=== PATIENT | male | born 1970 | race Caucasian/White ===

== ENCOUNTER 2024-05-03 20:48 | Inpatient (IN) | payer OTHER ==
[~2024-05-03] VITALS: Ht 167.6 cm; Wt 87.5 kg
[2024-05-03] MEDS ORDERED: SODIUM CHLORIDE 0.9% 100 ML ONE (20:58)
[2024-05-03] MEDS ORDERED: IOHEXOL 350 MG/ML 100 ML VIAL ONE (20:58)
[2024-05-03 21:19] LABS: BASOPHILS % (AUTO) 0.4 % (0.0-2.0); EOSINOPHILS % (AUTO) 1.9 % (1.0-6.0); HEMATOCRIT 45.7 % (41-53); HEMOGLOBIN 15.2 g/dL (13.5-17.5); LYMPHOCYTES # (AUTO) 1.5 K/uL (1.0-4.8); LYMPHOCYTES % (AUTO) 17.1 % (22.0-44.0); MEAN CORPUSCULAR HEMOGLOBIN 31.6 pg (26.0-34.0); MEAN CORPUSCULAR HGB CONC 33.3 G/dL (31.0-37.0); MEAN CORPUSCULAR VOLUME 95 fL (80-100); MONOCYTES # (AUTO) 0.5 K/uL (0.1-1.0); MONOCYTES % (AUTO) 6.2 % (2.0-9.0); NEUTROPHILS # (AUTO) 6.4 K/uL (1.8-7.7); NEUTROPHILS % (AUTO) 74.4 % (40.0-70.0); PLATELET COUNT (AUTO) 277 K/uL (150-450); RED BLOOD CELL COUNT(AUTO) 4.82 MIL/uL (4.50-5.90); RED CELL DISTRIBUTION WIDTH 13.8 % (11.5-14.5); WHITE BLOOD COUNT (AUTO) 8.7 K/uL (4.5-11.0)
[2024-05-03 21:22] LABS: ANION GAP 12 mmol/L (8-16); CALCIUM, TOTAL 9.2 mg/dL (8.8-10.5); CARBON DIOXIDE 24 mmol/L (22-29); CHLORIDE 102 mmol/L (98-107); CREATININE 0.93 mg/dL (0.60-1.30); GLOMERULAR FILTR. RATE CALC > 60 mL/min (>60); GLUCOSE,RANDOM 116 mg/dL (70-110); POTASSIUM 3.7 mmol/L (3.5-5.1); SODIUM SERUM 138 mmol/L (136-145); UREA NITROGEN, BLOOD 12 mg/dL (7-18)
[2024-05-03 21:26] LABS: PROTHROMBIN TIME 10.6 SEC (9.4-11.6)
[2024-05-03 21:29] LABS: ALANINE AMINOTRANSFERASE 15 U/L (12-78); ALBUMIN 3.9 g/dL (3.4-5.0); ALKALINE PHOSPHATASE 111 U/L (46-116); ASPARTATE AMINOTRANSFERASE 7 U/L (15-37); BILIRUBIN,TOTAL 0.4 mg/dL (0.1-1.0); TOTAL PROTEIN, SERUM 8.1 g/dL (6.4-8.2)
[2024-05-03 21:30] LABS: TROPONIN I-HIGH SENSITIVITY 10 ng/L (<76)
[2024-05-03] MEDS: LIDOCAINE 2% VISCOUS 15 ML SOLUTION UDCUP TP ONE (21:40)
[2024-05-03] MEDS: NiCARDipine HCL 25 MG in SODIUM CHLORIDE 0.9% 240 ML IV PRN (21:52)
[2024-05-03 21:54] LABS: APPEARANCE,URINE CLEAR (CLEAR); BILIRUBIN,URINE NEGATIVE (NEGATIVE); COLOR,URINE LIGHT YELLOW (YELLOW); GLUCOSE, URINE (UA) NEGATIVE (NEGATIVE); KETONES,URINE NEGATIVE (NEGATIVE); LEUKOCYTE ESTERASE ,URINE NEGATIVE (NEGATIVE); NITRATE,URINE NEGATIVE (NEGATIVE); OCCULT BLOOD,URINE NEGATIVE (NEGATIVE); PH,URINE 5.5 (5.0-8.0); PH,URINE DRUG SCREEN 5.5 (5.0-8.0); PROTEIN,URINE TRACE mg/dL (NEGATIVE); SPECIFIC GRAVITIY, URINE 1.041 (1.003-1.030); UROBILINOGEN,URINE <=1.0 mg/dL (<=1.0)
[2024-05-03 21:59] LABS: COVID AG,FIA SOURCE NASAL SWAB
[2024-05-03 22:00] LABS: ALCOHOL, URINE DRUG SCREEN NEGATIVE (NEGATIVE); AMPHET/METH SCREEN,URINE NEGATIVE (NEGATIVE); BARBITURATE SCREEN, URINE NEGATIVE (NEGATIVE); BENZODIAZEPINES SCREEN,URINE NEGATIVE (NEGATIVE); CANNABINOID SCREEN,URINE NEGATIVE (NEGATIVE); COCAINE SCREEN,URINE NEGATIVE (NEGATIVE); METHADONE SCREEN, URINE NEGATIVE (NEGATIVE); OPIATE SCREEN,URINE NEGATIVE (NEGATIVE); PHENCYCLIDINE SCREEN,URINE NEGATIVE (NEGATIVE)
[2024-05-03 22:13] LABS: BACTERIA,URINE None Seen /HPF (None Seen); RBC,URINE None Seen /HPF (0-2); WBC,URINE None Seen /HPF (0-5)
[2024-05-03 22:16] LABS: SARS-COV2 (COVID) ANTIGEN,FIA Negative (Negative)
[2024-05-03] MEDS ORDERED: ZOLPIDEM TARTRATE 5 MG TABLET PO PRN (23:15)
[2024-05-03] MEDS ORDERED: ALBUTEROL SULFATE 2.5 MG/0.5 ML NEB SOLUTION NEB PRN (23:15)
[2024-05-03] MEDS ORDERED: IPRATROPIUM BROMIDE 0.5 MG/2.5 ML NEB SOLUTION NEB PRN (23:15)
[2024-05-03] MEDS ORDERED: ONDANSETRON HCL 4 MG/2 ML VIAL IVP PRN (23:15)
[2024-05-03] MEDS ORDERED: BISACODYL 10 MG RECTAL RECTAL SUPPOSITORY PR PRN (23:15)
[2024-05-04 01:45] VITALS: BP 157/99; PULSE 120; RESP 10; TEMP 99.1
[2024-05-04 04:00] VITALS: BP 136/75; PULSE 93; RESP 14; TEMP 99.2
[2024-05-04 06:26] LABS: TROPONIN I-HIGH SENSITIVITY 24 ng/L (<76)
[2024-05-04 06:38] LABS: BASOPHILS % (AUTO) 0.4 % (0.0-2.0); EOSINOPHILS % (AUTO) 0.4 % (1.0-6.0); HEMATOCRIT 45.6 % (41-53); HEMOGLOBIN 15.1 g/dL (13.5-17.5); LYMPHOCYTES # (AUTO) 1.1 K/uL (1.0-4.8); LYMPHOCYTES % (AUTO) 9.2 % (22.0-44.0); MEAN CORPUSCULAR HEMOGLOBIN 31.6 pg (26.0-34.0); MEAN CORPUSCULAR HGB CONC 33.2 G/dL (31.0-37.0); MEAN CORPUSCULAR VOLUME 95 fL (80-100); MONOCYTES # (AUTO) 0.7 K/uL (0.1-1.0); NEUTROPHILS # (AUTO) 9.9 K/uL (1.8-7.7); PLATELET COUNT (AUTO) 283 K/uL (150-450); RED BLOOD CELL COUNT(AUTO) 4.78 MIL/uL (4.50-5.90); RED CELL DISTRIBUTION WIDTH 13.7 % (11.5-14.5); WHITE BLOOD COUNT (AUTO) 11.8 K/uL (4.5-11.0)
[2024-05-04 08:00] VITALS: BP 136/80; PULSE 99; RESP 10; TEMP 99.3
[2024-05-04 08:39] LABS: ALANINE AMINOTRANSFERASE 387 U/L (12-78); ALBUMIN 3.8 g/dL (3.4-5.0); ALKALINE PHOSPHATASE 103 U/L (46-116); ANION GAP 14 mmol/L (8-16); BILIRUBIN,TOTAL 0.5 mg/dL (0.1-1.0); CARBON DIOXIDE 23 mmol/L (22-29); CHLORIDE 104 mmol/L (98-107); CREATININE 0.94 mg/dL (0.60-1.30); GLOMERULAR FILTR. RATE CALC > 60 mL/min (>60); GLUCOSE,RANDOM 131 mg/dL (70-110); POTASSIUM 3.8 mmol/L (3.5-5.1); SODIUM SERUM 141 mmol/L (136-145); TOTAL PROTEIN, SERUM 7.6 g/dL (6.4-8.2); UREA NITROGEN, BLOOD 9 mg/dL (7-18)
[2024-05-04] MEDS: DOCUSATE SODIUM 100 MG CAPSULE PO SCH (09:00)
[2024-05-04 09:01] LABS: ASPARTATE AMINOTRANSFERASE 17 U/L (15-37)
[2024-05-04] MEDS: PANTOPRAZOLE SODIUM 40 MG/VIAL IVP SCH (09:21)
[2024-05-04 10:40] LABS: TROPONIN I-HIGH SENSITIVITY 18 ng/L (<76)
[2024-05-04 10:52] LABS: CHOL/HDL RATIO 3.5 (4.2-7.3)
[2024-05-04] MEDS: LABETALOL HCL 5 MG/ML 20 ML VIAL IVP PRN (10:59)
[2024-05-04 12:00] VITALS: BP 144/81; PULSE 103; RESP 10; TEMP 100
[2024-05-04] MEDS: NiCARDipine HCL 25 MG in SODIUM CHLORIDE 0.9% 240 ML IV PRN (13:54)
[2024-05-04 16:00] VITALS: BP 118/72; PULSE 91; RESP 14; TEMP 99.1
[2024-05-04 20:00] VITALS: BP 132/84; PULSE 101; RESP 16; TEMP 99.7
[2024-05-05] VITALS: BP 139/68; PULSE 92; RESP 12; TEMP 98.8
[2024-05-05 04:00] VITALS: BP 134/87; PULSE 98; RESP 16; TEMP 98.4
[2024-05-05 05:37] LABS: ANION GAP 8 mmol/L (8-16); CALCIUM, TOTAL 8.8 mg/dL (8.8-10.5); CARBON DIOXIDE 27 mmol/L (22-29); CHLORIDE 102 mmol/L (98-107); CREATININE 0.74 mg/dL (0.60-1.30); GLOMERULAR FILTR. RATE CALC > 60 mL/min (>60); GLUCOSE,RANDOM 128 mg/dL (70-110); POTASSIUM 3.3 mmol/L (3.5-5.1); SODIUM SERUM 137 mmol/L (136-145); UREA NITROGEN, BLOOD 12 mg/dL (7-18)
[2024-05-05 05:40] LABS: HEMOGLOBIN A1C 5.4 % (3.8-5.6)
[2024-05-05 05:43] LABS: BASOPHILS % (AUTO) 0.3 % (0.0-2.0); EOSINOPHILS % (AUTO) 0.7 % (1.0-6.0); HEMATOCRIT 45.4 % (41-53); HEMOGLOBIN 15.2 g/dL (13.5-17.5); LYMPHOCYTES # (AUTO) 1.3 K/uL (1.0-4.8); LYMPHOCYTES % (AUTO) 12.7 % (22.0-44.0); MEAN CORPUSCULAR HEMOGLOBIN 31.9 pg (26.0-34.0); MEAN CORPUSCULAR HGB CONC 33.6 G/dL (31.0-37.0); MEAN CORPUSCULAR VOLUME 95 fL (80-100); MONOCYTES # (AUTO) 0.9 K/uL (0.1-1.0); MONOCYTES % (AUTO) 8.8 % (2.0-9.0); NEUTROPHILS # (AUTO) 8.1 K/uL (1.8-7.7); NEUTROPHILS % (AUTO) 77.5 % (40.0-70.0); PLATELET COUNT (AUTO) 292 K/uL (150-450); RED BLOOD CELL COUNT(AUTO) 4.77 MIL/uL (4.50-5.90); RED CELL DISTRIBUTION WIDTH 13.7 % (11.5-14.5); WHITE BLOOD COUNT (AUTO) 10.4 K/uL (4.5-11.0)
[2024-05-05 08:00] VITALS: BP 128/74; PULSE 100; RESP 16; TEMP 98.3
[2024-05-05] MEDS: AmLODIPine BESYLATE 10 MG TABLET PO SCH (11:09)
[2024-05-05 12:00] VITALS: BP 123/67; PULSE 97; RESP 17; TEMP 98.5
[2024-05-05] MEDS: HydrALAZINE HCL 20 MG/ML VIAL IVP PRN (14:45)
[2024-05-05 16:00] VITALS: BP 139/85; PULSE 107; RESP 21; TEMP 99.8
[2024-05-05] MEDS ORDERED: POTASSIUM CHLORIDE 20 MEQ ER TABLET PO PRN (18:15)
[2024-05-05] MEDS ORDERED: POTASSIUM CHL 10 MEQ/WATER 50 ML IV PRN (18:15)
[2024-05-05] MEDS: POTASSIUM CHLORIDE 10% 40 MEQ/30 ML LIQUID UDCUP PO PRN (18:44)
[2024-05-05 20:00] VITALS: BP 150/82; PULSE 101; RESP 18; TEMP 98.7
[2024-05-06] VITALS (9 sets, daily range): BP systolic 128–158; BP diastolic 63–94; PULSE 94–122; RESP 16–18; TEMP 97.7–99.9
[2024-05-06 06:11] LABS: BASOPHILS % (AUTO) 0.5 % (0.0-2.0); EOSINOPHILS % (AUTO) 0.7 % (1.0-6.0); HEMATOCRIT 46.4 % (41-53); HEMOGLOBIN 15.4 g/dL (13.5-17.5); LYMPHOCYTES # (AUTO) 1.6 K/uL (1.0-4.8); LYMPHOCYTES % (AUTO) 13.3 % (22.0-44.0); MEAN CORPUSCULAR HEMOGLOBIN 31.7 pg (26.0-34.0); MEAN CORPUSCULAR HGB CONC 33.1 G/dL (31.0-37.0); MEAN CORPUSCULAR VOLUME 96 fL (80-100); MONOCYTES # (AUTO) 1.1 K/uL (0.1-1.0); MONOCYTES % (AUTO) 9.6 % (2.0-9.0); NEUTROPHILS # (AUTO) 8.9 K/uL (1.8-7.7); NEUTROPHILS % (AUTO) 75.9 % (40.0-70.0); PLATELET COUNT (AUTO) 285 K/uL (150-450); RED BLOOD CELL COUNT(AUTO) 4.85 MIL/uL (4.50-5.90); RED CELL DISTRIBUTION WIDTH 13.8 % (11.5-14.5); WHITE BLOOD COUNT (AUTO) 11.7 K/uL (4.5-11.0)
[2024-05-06 06:22] LABS: ANION GAP 10 mmol/L (8-16); CALCIUM, TOTAL 8.9 mg/dL (8.8-10.5); CARBON DIOXIDE 27 mmol/L (22-29); CHLORIDE 103 mmol/L (98-107); CREATININE 0.79 mg/dL (0.60-1.30); GLOMERULAR FILTR. RATE CALC > 60 mL/min (>60); GLUCOSE,RANDOM 109 mg/dL (70-110); POTASSIUM 3.8 mmol/L (3.5-5.1); SODIUM SERUM 140 mmol/L (136-145); UREA NITROGEN, BLOOD 12 mg/dL (7-18)
[2024-05-06] MEDS: LOSARTAN POTASSIUM 25 MG TABLET PO SCH (09:12)
[2024-05-06] MEDS: ETHYL ALCOHOL 62% ANTISEPTIC NASAL SANITIZER 0.6 ML AMPUL NASAL SCH (09:12)
[2024-05-07 00:49] VITALS: BP 140/86; PULSE 101; RESP 20; TEMP 99
[2024-05-07 03:53] VITALS: BP 139/84; PULSE 94; RESP 18; TEMP 98
[2024-05-07 07:45] VITALS: BP 127/80; PULSE 93; RESP 20; TEMP 98.4
[2024-05-07 11:56] VITALS: BP 131/73; PULSE 91; RESP 19; TEMP 98
[2024-05-07 15:51] VITALS: BP 139/81; PULSE 90; RESP 19; TEMP 98.5
[2024-05-08 07:10] VITALS: BP 141/92; PULSE 105; RESP 18; TEMP 99.1
[2024-05-08] MEDS: HYDROCODONE/ACETAMINOPHEN 5-325 MG TABLET PO PRN (08:19)
[2024-05-08] MEDS: MORPHINE SULFATE 2 MG/ML SYRINGE IVP PRN (08:51)
[2024-05-08 11:58] VITALS: BP 147/89; PULSE 111; RESP 18; TEMP 99
[2024-05-08 12:31] LABS: BASOPHILS % (AUTO) 0.6 % (0.0-2.0); EOSINOPHILS % (AUTO) 0.5 % (1.0-6.0); HEMATOCRIT 46.2 % (41-53); HEMOGLOBIN 15.6 g/dL (13.5-17.5); LYMPHOCYTES # (AUTO) 1.1 K/uL (1.0-4.8); LYMPHOCYTES % (AUTO) 10.6 % (22.0-44.0); MEAN CORPUSCULAR HEMOGLOBIN 32.1 pg (26.0-34.0); MEAN CORPUSCULAR HGB CONC 33.8 G/dL (31.0-37.0); MEAN CORPUSCULAR VOLUME 95 fL (80-100); MONOCYTES # (AUTO) 0.9 K/uL (0.1-1.0); MONOCYTES % (AUTO) 8.2 % (2.0-9.0); NEUTROPHILS # (AUTO) 8.5 K/uL (1.8-7.7); NEUTROPHILS % (AUTO) 80.1 % (40.0-70.0); PLATELET COUNT (AUTO) 299 K/uL (150-450); RED BLOOD CELL COUNT(AUTO) 4.87 MIL/uL (4.50-5.90); RED CELL DISTRIBUTION WIDTH 14.1 % (11.5-14.5); WHITE BLOOD COUNT (AUTO) 10.6 K/uL (4.5-11.0)
[2024-05-08 12:48] LABS: ANION GAP 12 mmol/L (8-16); CARBON DIOXIDE 24 mmol/L (22-29); CHLORIDE 104 mmol/L (98-107); CREATININE 0.86 mg/dL (0.60-1.30); GLOMERULAR FILTR. RATE CALC > 60 mL/min (>60); GLUCOSE,RANDOM 151 mg/dL (70-110); POTASSIUM 3.6 mmol/L (3.5-5.1); SODIUM SERUM 140 mmol/L (136-145); UREA NITROGEN, BLOOD 24 mg/dL (7-18)
[2024-05-08 16:00] VITALS: BP 146/81; PULSE 102; RESP 18; TEMP 98.9
[2024-05-08 19:46] VITALS: BP 160/94; PULSE 110; RESP 18; TEMP 98.7
[2024-05-09] VITALS (7 sets, daily range): BP systolic 150–171; BP diastolic 77–96; PULSE 86–115; RESP 17–19; TEMP 97.9–99.9
[2024-05-09] MEDS: ACETAMINOPHEN 325 MG TABLET PO PRN (06:35)
[2024-05-09] MEDS: MAGNESIUM HYDROXIDE SUSPENSION 30 ML UDCUP PO PRN (07:13)
[2024-05-09] MEDS: MORPHINE SULFATE 2 MG/ML SYRINGE IVP PRN (11:21)
[2024-05-09] MEDS: LOSARTAN POTASSIUM 50 MG TABLET PO SCH (21:19)
[2024-05-10 03:08] VITALS: BP 134/80; PULSE 93; RESP 18; TEMP 98.5
[2024-05-10 08:12] VITALS: BP 141/78; PULSE 85; RESP 19; TEMP 98.6
[2024-05-10 11:05] VITALS: BP 143/71; PULSE 88; RESP 18; TEMP 98.3
[2024-05-10 20:00] VITALS: BP 143/92; PULSE 80; RESP 16; TEMP 98.3
[2024-05-11] VITALS: BP 132/94; PULSE 79; RESP 20; TEMP 98.3
[2024-05-11 04:00] VITALS: BP 137/77; PULSE 92; RESP 20; TEMP 98
[2024-05-11 08:14] VITALS: BP 153/92; PULSE 98; RESP 18; TEMP 98.6
[2024-05-11 11:31] VITALS: BP 152/89; PULSE 98; RESP 18; TEMP 98.4
[2024-05-11 20:00] VITALS: BP 118/67; PULSE 102; RESP 17; TEMP 98.7
[2024-05-12] VITALS: BP 148/77; PULSE 91; RESP 18; TEMP 98.8
[2024-05-12 04:00] VITALS: BP 118/73; PULSE 91; RESP 17; TEMP 98.3
[2024-05-12 07:33] VITALS: BP 121/71; PULSE 94; RESP 18; TEMP 98.4
[2024-05-12 11:28] VITALS: BP 116/73; PULSE 108; RESP 18; TEMP 98.1
[2024-05-12 11:30] VITALS: BP 134/78; PULSE 81; RESP 18; TEMP 98.4
== END 2024-05-12 11:30 | DRG 65 ==
LOC: EMS 20:48 → EDH 05-04 00:01 → ICU 05-04 01:30 → 5N 05-06 11:00 → 5S 05-10 20:57 → 2WR 05-12 11:30
PROVIDERS: ADMIT Hospitalist; ATTEND Hospitalist
DX: I61.0 Nontraumatic intracerebral hemorrhage in hemisphere, subcortical (principal); G81.91 Hemiplegia, unspecified affecting right dominant side; R47.01 Aphasia; I16.1 Hypertensive emergency; R13.10 Dysphagia, unspecified; Z20.822 Contact with and (suspected) exposure to COVID-19; G93.0 Cerebral cysts; I61.5 Nontraumatic intracerebral hemorrhage, intraventricular; I10 Essential (primary) hypertension; E66.9 Obesity, unspecified; E78.5 Hyperlipidemia, unspecified; I95.9 Hypotension, unspecified; R47.1 Dysarthria and anarthria; Z68.31 Body mass index [BMI] 31.0-31.9, adult; Z79.899 Other long term (current) drug therapy
CPT/HCPCS: 70450; 70496; 70498; 71045; 80048; 80053; 80061; 80307; 81001; 82948; 83036; 84132; 84484; 85025; 85610; 85730; 87081; 92526; 92610; 93005; 97112; 97163; 97530; 97535; 99291; C9113; J0360; J2270; J3490; J7050; 36415-L1; 36415-TC

== ENCOUNTER 2024-05-12 12:23 | Inpatient (IN) | payer OTHER ==
[~2024-05-12] VITALS: Ht 172.7 cm; Wt 80.7 kg
[2024-05-12 11:30] VITALS: BP 134/78; PULSE 81; RESP 18; TEMP 98.4; O2SAT 98
[2024-05-12] MEDS ORDERED: IPRATROPIUM BROMIDE 0.5 MG/2.5 ML NEB SOLUTION NEB PRN (12:45)
[2024-05-12] MEDS ORDERED: ALBUTEROL SULFATE 2.5 MG/0.5 ML NEB SOLUTION NEB PRN (12:45)
[2024-05-12] MEDS ORDERED: ONDANSETRON 4 MG TABLET PO PRN (12:45)
[2024-05-12 20:00] VITALS: O2SAT 96
[2024-05-12 20:06] VITALS: BP 138/77; PULSE 99; RESP 19; TEMP 98.3; O2SAT 96
[2024-05-12] MEDS: ETHYL ALCOHOL 62% ANTISEPTIC NASAL SANITIZER 0.6 ML AMPUL NASAL SCH (21:00)
[2024-05-12] MEDS: LOSARTAN POTASSIUM 50 MG TABLET PO SCH (21:00)
[2024-05-12] MEDS: DOCUSATE SODIUM 100 MG CAPSULE PO SCH (21:00)
[2024-05-13] VITALS (9 sets, daily range): BP systolic 137–162; BP diastolic 76–92; PULSE 85–107; RESP 18–19; TEMP 97.5–98.2; O2SAT 97–98
[2024-05-13] MEDS: DOCUSATE SODIUM 283 MG/5 ML MINI-ENEMA PR PRN (07:04)
[2024-05-13 07:49] LABS: BASOPHILS % (AUTO) 0.4 % (0.0-2.0); EOSINOPHILS % (AUTO) 3.3 % (1.0-6.0); HEMATOCRIT 45.8 % (41-53); HEMOGLOBIN 15.3 g/dL (13.5-17.5); LYMPHOCYTES # (AUTO) 0.9 K/uL (1.0-4.8); LYMPHOCYTES % (AUTO) 10.7 % (22.0-44.0); MEAN CORPUSCULAR HEMOGLOBIN 31.9 pg (26.0-34.0); MEAN CORPUSCULAR HGB CONC 33.4 G/dL (31.0-37.0); MEAN CORPUSCULAR VOLUME 96 fL (80-100); MONOCYTES # (AUTO) 0.8 K/uL (0.1-1.0); MONOCYTES % (AUTO) 9.7 % (2.0-9.0); NEUTROPHILS # (AUTO) 6.6 K/uL (1.8-7.7); NEUTROPHILS % (AUTO) 75.9 % (40.0-70.0); PLATELET COUNT (AUTO) 298 K/uL (150-450); RED CELL DISTRIBUTION WIDTH 13.1 % (11.5-14.5); WHITE BLOOD COUNT (AUTO) 8.7 K/uL (4.5-11.0)
[2024-05-13 08:18] LABS: ALANINE AMINOTRANSFERASE 14 U/L (12-78); ALBUMIN 3.4 g/dL (3.4-5.0); ALKALINE PHOSPHATASE 98 U/L (46-116); ANION GAP 10 mmol/L (8-16); ASPARTATE AMINOTRANSFERASE 18 U/L (15-37); BILIRUBIN,TOTAL 1.1 mg/dL (0.1-1.0); CALCIUM, TOTAL 8.9 mg/dL (8.8-10.5); CARBON DIOXIDE 25 mmol/L (22-29); CHLORIDE 103 mmol/L (98-107); CREATININE 0.81 mg/dL (0.60-1.30); GLOMERULAR FILTR. RATE CALC > 60 mL/min (>60); GLUCOSE,RANDOM 107 mg/dL (70-110); POTASSIUM 3.8 mmol/L (3.5-5.1); SODIUM SERUM 138 mmol/L (136-145); UREA NITROGEN, BLOOD 28 mg/dL (7-18)
[2024-05-13] MEDS: AmLODIPine BESYLATE 10 MG TABLET PO SCH (08:56)
[2024-05-13] MEDS: PANTOPRAZOLE SODIUM 40 MG DR TABLET PO SCH (08:56)
[2024-05-13] MEDS: ACETAMINOPHEN 325 MG TABLET PO PRN (14:23)
[2024-05-13] MEDS: HydrALAZINE HCL 10 MG TABLET PO PRN (14:55)
[2024-05-13] MEDS: PNEUMOCOCCAL VACCINE POLYVALENT 0.5 ML SYRINGE [PPSV23] IM. ONE (18:04)
[2024-05-13] MEDS: ATORVASTATIN CALCIUM 20 MG TABLET PO SCH (20:33)
[2024-05-13] MEDS: SENNOSIDES 8.6 MG TABLET PO SCH (20:33)
[2024-05-14] VITALS (7 sets, daily range): BP systolic 122–134; BP diastolic 68–83; PULSE 79–95; RESP 18; TEMP 98.1–98.5; O2SAT 96–98
[2024-05-14] MEDS: ENOXAPARIN SODIUM 40 MG/0.4 ML PF SYRINGE SQ SCH (08:03)
[2024-05-14] MEDS: HydrALAZINE HCL 10 MG TABLET PO SCH (15:48)
[2024-05-14] MEDS: MAGNESIUM HYDROXIDE SUSPENSION 30 ML UDCUP PO PRN (19:26)
[2024-05-14] MEDS: DOCUSATE SODIUM 100 MG/10 ML LIQUID UDCUP PO SCH (20:18)
[2024-05-15] MEDS: BISACODYL 10 MG RECTAL RECTAL SUPPOSITORY PR PRN (05:52)
[2024-05-15 08:15] VITALS: BP 130/73; PULSE 79; RESP 18; TEMP 98.1; O2SAT 97
[2024-05-15 15:17] VITALS: O2SAT 97
[2024-05-15 20:00] VITALS: BP 139/77; PULSE 87; RESP 18; TEMP 98.8; O2SAT 97
[2024-05-16 08:00] VITALS: BP 134/73; PULSE 80; RESP 18; TEMP 98.5; O2SAT 97
[2024-05-16 16:40] VITALS: BP 125/74; PULSE 85
[2024-05-16 19:50] VITALS: BP 138/75; PULSE 87; RESP 18; TEMP 98.3; O2SAT 96
[2024-05-16] MEDS: MELATONIN 5 MG TABLET PO PRN (19:54)
[2024-05-16 20:00] VITALS: BP 138/75; PULSE 87; RESP 19; TEMP 98.3; O2SAT 96
[2024-05-16 21:54] VITALS: O2SAT 96
[2024-05-17 08:00] VITALS: BP 123/91; PULSE 80; RESP 18; TEMP 98.3; O2SAT 96
[2024-05-17 16:15] VITALS: BP 132/74; PULSE 76; RESP 18
[2024-05-17 20:00] VITALS: BP 115/60; PULSE 91; RESP 18; TEMP 98.4; O2SAT 96
[2024-05-18 08:00] VITALS: BP 126/74; PULSE 87; RESP 18; TEMP 98.2; O2SAT 97
[2024-05-18] MEDS: AmLODIPine BESYLATE 5 MG TABLET PO SCH (08:16)
[2024-05-18] MEDS: SERTRALINE HCL 50 MG TABLET PO SCH (12:23)
[2024-05-18 20:01] VITALS: BP 126/74; PULSE 85; RESP 20; TEMP 98.7; O2SAT 96
[2024-05-18] MEDS: SENNOSIDES 8.6 MG TABLET PO SCH (20:03)
[2024-05-18] MEDS: HydrALAZINE HCL 25 MG TABLET PO PRN (20:03)
[2024-05-19 08:00] VITALS: O2SAT 98
[2024-05-19 08:05] VITALS: BP 137/85; PULSE 82; RESP 18; TEMP 98.6; O2SAT 98
[2024-05-19 08:19] LABS: BASOPHILS % (AUTO) 0.8 % (0.0-2.0); EOSINOPHILS % (AUTO) 3.7 % (1.0-6.0); HEMATOCRIT 44.2 % (41-53); HEMOGLOBIN 14.9 g/dL (13.5-17.5); LYMPHOCYTES # (AUTO) 0.8 K/uL (1.0-4.8); LYMPHOCYTES % (AUTO) 13.7 % (22.0-44.0); MEAN CORPUSCULAR HEMOGLOBIN 31.8 pg (26.0-34.0); MEAN CORPUSCULAR HGB CONC 33.7 G/dL (31.0-37.0); MEAN CORPUSCULAR VOLUME 94 fL (80-100); MONOCYTES # (AUTO) 0.7 K/uL (0.1-1.0); MONOCYTES % (AUTO) 12.8 % (2.0-9.0); NEUTROPHILS # (AUTO) 3.8 K/uL (1.8-7.7); PLATELET COUNT (AUTO) 298 K/uL (150-450); RED BLOOD CELL COUNT(AUTO) 4.69 MIL/uL (4.50-5.90); RED CELL DISTRIBUTION WIDTH 12.8 % (11.5-14.5); WHITE BLOOD COUNT (AUTO) 5.5 K/uL (4.5-11.0)
[2024-05-19 08:27] LABS: ANION GAP 9 mmol/L (8-16); CALCIUM, TOTAL 8.8 mg/dL (8.8-10.5); CARBON DIOXIDE 26 mmol/L (22-29); CHLORIDE 101 mmol/L (98-107); CREATININE 0.79 mg/dL (0.60-1.30); GLOMERULAR FILTR. RATE CALC > 60 mL/min (>60); GLUCOSE,RANDOM 110 mg/dL (70-110); POTASSIUM 3.9 mmol/L (3.5-5.1); SODIUM SERUM 136 mmol/L (136-145); UREA NITROGEN, BLOOD 16 mg/dL (7-18)
[2024-05-19 16:18] VITALS: BP 126/75; PULSE 85; RESP 18; O2SAT 97
[2024-05-19 20:05] VITALS: BP 126/76; PULSE 84; RESP 18; TEMP 98.9; O2SAT 98
[2024-05-19] MEDS: DOCUSATE SODIUM 250 MG CAPSULE PO SCH (21:22)
[2024-05-20 00:02] VITALS: O2SAT 98
[2024-05-20 08:05] VITALS: BP 132/80; PULSE 80; RESP 18; TEMP 98.2; O2SAT 97
[2024-05-20 10:39] VITALS: O2SAT 97
[2024-05-20 20:00] VITALS: O2SAT 97
[2024-05-20 20:01] VITALS: BP 120/67; PULSE 89; RESP 18; TEMP 98.3; O2SAT 97
[2024-05-21 08:00] VITALS: BP 118/80; PULSE 73; RESP 19; TEMP 98.6; O2SAT 96
[2024-05-21 08:40] VITALS: O2SAT 96
[2024-05-21 20:05] VITALS: BP 121/69; PULSE 79; RESP 18; TEMP 98.6; O2SAT 96
[2024-05-21 22:37] VITALS: O2SAT 96
[2024-05-22 08:00] VITALS: BP 131/84; PULSE 86; RESP 18; TEMP 97.6; O2SAT 96
[2024-05-22 19:17] VITALS: BP 132/74; PULSE 86; RESP 18; TEMP 98.3; O2SAT 98
[2024-05-22] MEDS: LOSARTAN POTASSIUM 25 MG TABLET PO SCH (19:29)
[2024-05-22 21:03] VITALS: O2SAT 98
[2024-05-23 08:00] VITALS: BP 122/74; PULSE 77; RESP 18; TEMP 98.7; O2SAT 99
[2024-05-23 20:04] VITALS: BP 107/55; PULSE 81; RESP 19; TEMP 98.3; O2SAT 98
[2024-05-23 23:23] VITALS: O2SAT 98
[2024-05-24 08:00] VITALS: BP 124/70; PULSE 75; RESP 18; TEMP 98.3; O2SAT 98
[2024-05-24 20:02] VITALS: BP 112/64; PULSE 64; RESP 18; TEMP 98.4; O2SAT 98
[2024-05-24 22:58] VITALS: O2SAT 98
[2024-05-25 08:00] VITALS: BP 111/68; PULSE 73; RESP 18; TEMP 98.2; O2SAT 98
[2024-05-25] MEDS ORDERED: LOSARTAN POTASSIUM 25 MG TABLET PO SCH (09:00)
[2024-05-25 20:01] VITALS: BP 105/67; PULSE 66; RESP 18; TEMP 98.4; O2SAT 97
[2024-05-25 22:22] VITALS: O2SAT 97
[2024-05-26 08:10] VITALS: BP 118/75; PULSE 68; RESP 18; TEMP 98.4; O2SAT 98
[2024-05-26 20:00] VITALS: BP 112/68; PULSE 72; RESP 18; TEMP 97.9; O2SAT 97
[2024-05-27] MEDS ORDERED: PANT-31 PO (04:05)
[2024-05-27] MEDS ORDERED: AMLO2.5T96 PO (04:05)
[2024-05-27] MEDS ORDERED: SERT-158 PO (04:07)
[2024-05-27] MEDS ORDERED: ATOR20TA PO (04:12)
[2024-05-27 08:00] VITALS: BP 119/69; PULSE 67; RESP 19; TEMP 97.5; O2SAT 97
[2024-05-27] MEDS: AmLODIPine BESYLATE 5 MG TABLET PO SCH (08:22)
[2024-05-27 20:30] VITALS: BP 117/68; PULSE 75; RESP 19; TEMP 98.5; O2SAT 97
[2024-05-27 21:26] VITALS: O2SAT 97
[2024-05-28 08:00] VITALS: O2SAT 97
[2024-05-28 08:10] VITALS: BP 124/73; PULSE 71; RESP 18; TEMP 98.3; O2SAT 97
[2024-05-28 20:00] VITALS: BP 116/61; PULSE 72; RESP 18; TEMP 98.2; O2SAT 98
[2024-05-29 08:00] VITALS: BP 117/67; PULSE 64; RESP 18; TEMP 98.2; O2SAT 97
[2024-05-29 09:21] LABS: BASOPHILS % (AUTO) 0.4 % (0.0-2.0); EOSINOPHILS % (AUTO) 0.5 % (1.0-6.0); HEMOGLOBIN 14.4 g/dL (13.5-17.5); LYMPHOCYTES % (AUTO) 16.9 % (22.0-44.0); MEAN CORPUSCULAR HEMOGLOBIN 31.9 pg (26.0-34.0); MEAN CORPUSCULAR HGB CONC 34.2 G/dL (31.0-37.0); MEAN CORPUSCULAR VOLUME 93 fL (80-100); MONOCYTES # (AUTO) 0.3 K/uL (0.1-1.0); MONOCYTES % (AUTO) 5.5 % (2.0-9.0); NEUTROPHILS # (AUTO) 4.8 K/uL (1.8-7.7); NEUTROPHILS % (AUTO) 76.7 % (40.0-70.0); PLATELET COUNT (AUTO) 314 K/uL (150-450); RED BLOOD CELL COUNT(AUTO) 4.51 MIL/uL (4.50-5.90); RED CELL DISTRIBUTION WIDTH 13.3 % (11.5-14.5); WHITE BLOOD COUNT (AUTO) 6.2 K/uL (4.5-11.0)
[2024-05-29 09:27] LABS: ANION GAP 9 mmol/L (8-16); CALCIUM, TOTAL 9.2 mg/dL (8.8-10.5); CARBON DIOXIDE 27 mmol/L (22-29); CHLORIDE 103 mmol/L (98-107); CREATININE 0.86 mg/dL (0.60-1.30); GLOMERULAR FILTR. RATE CALC > 60 mL/min (>60); GLUCOSE,RANDOM 147 mg/dL (70-110); POTASSIUM 3.8 mmol/L (3.5-5.1); SODIUM SERUM 139 mmol/L (136-145); UREA NITROGEN, BLOOD 14 mg/dL (7-18)
[2024-05-29 20:02] VITALS: BP 125/70; PULSE 69; RESP 18; TEMP 98.2; O2SAT 98
[2024-05-30 08:19] VITALS: BP 138/70; PULSE 68; RESP 18; TEMP 98.1; O2SAT 99
[2024-05-30 20:00] VITALS: BP 119/70; PULSE 70; RESP 18; TEMP 97.4; O2SAT 96
[2024-05-31 08:00] VITALS: BP 140/76; PULSE 70; RESP 18; TEMP 98.1; O2SAT 98
[2024-05-31 20:10] VITALS: BP 132/68; PULSE 70; RESP 18; TEMP 98.6; O2SAT 97
[2024-05-31 22:17] VITALS: O2SAT 97
[2024-06-01 08:00] VITALS: BP 128/55; PULSE 71; RESP 18; TEMP 98.1; O2SAT 96
[2024-06-01 20:02] VITALS: BP 128/75; PULSE 77; RESP 18; TEMP 98.2; O2SAT 98
[2024-06-01 20:55] VITALS: O2SAT 98
[2024-06-02 08:00] VITALS: BP 124/69; PULSE 71; RESP 18; TEMP 98.2; O2SAT 98
[2024-06-02 22:34] VITALS: O2SAT 98
[2024-06-02 22:38] VITALS: BP 132/73; PULSE 66; RESP 18; TEMP 98.5; O2SAT 98
[2024-06-03 08:10] VITALS: BP 119/76; PULSE 74; RESP 20; TEMP 98.1; O2SAT 97
[2024-06-03 09:36] VITALS: O2SAT 97
[2024-06-03 20:00] VITALS: BP 125/67; PULSE 73; RESP 20; TEMP 98.7; O2SAT 97
[2024-06-04 08:00] VITALS: BP 124/74; PULSE 61; RESP 19; TEMP 98; O2SAT 97
[2024-06-04 21:00] VITALS: BP 121/71; PULSE 80; RESP 18; TEMP 98.3; O2SAT 98
[2024-06-05 08:05] VITALS: BP 126/69; PULSE 67; RESP 18; TEMP 98.6; O2SAT 98
[2024-06-05 16:31] VITALS: O2SAT 96
[2024-06-05 20:00] VITALS: BP 109/58; PULSE 72; RESP 18; TEMP 97.9; O2SAT 98
[2024-06-06 08:50] VITALS: BP 132/71; PULSE 77; RESP 16; TEMP 98.1; O2SAT 99
[2024-06-06 13:00] VITALS: O2SAT 99
[2024-06-06 20:00] VITALS: BP 112/72; PULSE 83; RESP 18; TEMP 98.6; O2SAT 97
[2024-06-07 11:13] VITALS: BP 146/70; PULSE 64; RESP 19; TEMP 97.9; O2SAT 97
[2024-06-07 20:15] VITALS: BP 150/70; PULSE 74; RESP 18; TEMP 98.1; O2SAT 96
[2024-06-07 20:16] VITALS: BP 133/76; PULSE 67; RESP 18; O2SAT 96
[2024-06-07 20:30] VITALS: O2SAT 96
[2024-06-08 07:29] LABS: BASOPHILS % (AUTO) 0.9 % (0.0-2.0); EOSINOPHILS % (AUTO) 1.3 % (1.0-6.0); HEMATOCRIT 42.1 % (41-53); LYMPHOCYTES # (AUTO) 1.1 K/uL (1.0-4.8); LYMPHOCYTES % (AUTO) 20.2 % (22.0-44.0); MEAN CORPUSCULAR HEMOGLOBIN 31.5 pg (26.0-34.0); MEAN CORPUSCULAR HGB CONC 33.2 G/dL (31.0-37.0); MEAN CORPUSCULAR VOLUME 95 fL (80-100); MONOCYTES # (AUTO) 0.5 K/uL (0.1-1.0); MONOCYTES % (AUTO) 9.2 % (2.0-9.0); NEUTROPHILS # (AUTO) 3.7 K/uL (1.8-7.7); NEUTROPHILS % (AUTO) 68.4 % (40.0-70.0); PLATELET COUNT (AUTO) 252 K/uL (150-450); RED BLOOD CELL COUNT(AUTO) 4.43 MIL/uL (4.50-5.90); RED CELL DISTRIBUTION WIDTH 13.9 % (11.5-14.5); WHITE BLOOD COUNT (AUTO) 5.4 K/uL (4.5-11.0)
[2024-06-08 07:57] LABS: ANION GAP 9 mmol/L (8-16); CALCIUM, TOTAL 8.9 mg/dL (8.8-10.5); CARBON DIOXIDE 27 mmol/L (22-29); CHLORIDE 103 mmol/L (98-107); CREATININE 0.77 mg/dL (0.60-1.30); GLOMERULAR FILTR. RATE CALC > 60 mL/min (>60); GLUCOSE,RANDOM 102 mg/dL (70-110); POTASSIUM 3.9 mmol/L (3.5-5.1); SODIUM SERUM 139 mmol/L (136-145); UREA NITROGEN, BLOOD 13 mg/dL (7-18)
[2024-06-08 08:00] VITALS: BP 141/83; PULSE 66; RESP 19; TEMP 98.1; O2SAT 97
[2024-06-08 20:00] VITALS: BP 107/67; PULSE 71; RESP 19; TEMP 97.9; O2SAT 97
[2024-06-08 21:25] VITALS: O2SAT 97
[2024-06-09 08:00] VITALS: BP 126/74; PULSE 71; RESP 18; TEMP 98.5; O2SAT 97
[2024-06-09 20:00] VITALS: BP 126/72; PULSE 67; RESP 18; TEMP 97.9; O2SAT 97
[2024-06-10 08:00] VITALS: BP 126/76; PULSE 59; RESP 18; TEMP 98.2; O2SAT 98
[2024-06-10 22:59] VITALS: BP 113/70; PULSE 76; RESP 18; TEMP 97.3; O2SAT 98
[2024-06-11 08:00] VITALS: BP 140/75; PULSE 67; RESP 18; TEMP 98.6; O2SAT 98
== END 2024-06-11 19:00 | DRG 64 ==
LOC: 2WR 12:34
PROVIDERS: ADMIT Physical Medicine & Rehabilitation; ATTEND Physical Medicine & Rehabilitation
DX: I63.89 Other cerebral infarction (principal); I61.0 Nontraumatic intracerebral hemorrhage in hemisphere, subcortical; G81.91 Hemiplegia, unspecified affecting right dominant side; I16.1 Hypertensive emergency; E66.01 Morbid (severe) obesity due to excess calories; K46.9 Unspecified abdominal hernia without obstruction or gangrene; R13.10 Dysphagia, unspecified; E78.5 Hyperlipidemia, unspecified; I10 Essential (primary) hypertension; Z74.09 Other reduced mobility; Z20.822 Contact with and (suspected) exposure to COVID-19; R62.7 Adult failure to thrive; R41.89 Other symptoms and signs involving cognitive functions and awareness; G47.00 Insomnia, unspecified; R47.01 Aphasia; R47.1 Dysarthria and anarthria; Z91.148 Patient's other noncompliance with medication regimen for other reason; Z68.27 Body mass index [BMI] 27.0-27.9, adult
CPT/HCPCS: 80048; 80053; 85025; 87081; 87635; 92507; 92523; 92526; 97110; 97112; 97116; 97163; 97167; 97530; 97535; 99366; J1650